=== PATIENT | female | born 1950 | race Caucasian/White ===

== ENCOUNTER 2016-08-26 20:08 | Emergency (ER) | payer OTHER ==
[~2016-08-26] VITALS: Ht 157.5 cm; Wt 67.0 kg
[~2016-08-26 20:08] MED LIST: B COTAB3 PO; CLIN1CAP6 PO; DOXY100T PO; FISH1000 PO; LACT PO; LORTA5 PO; MULT-65 PO; PERC10TA27 PO; SULF-154 PO; VALA500 PO; VITA400C28 PO
[2016-08-26 20:28] VITALS: BP 122/78; PULSE 78; RESP 16; TEMP 97.7; O2SAT 99
[2016-08-26] MEDS ORDERED: LEVO25TA4 PO (20:42)
--- NOTE | 2016-08-26 20:58 | PD ---
HPI . right eye scratching Chief Complaint: Eye Problems/Injury Time Seen by Provider: 20:58 Travel History International Travel<30 days: No Contact w/Intl Traveler<30days: No Traveled to known affect area: No History of Present Illness HPI 65-year-old female with history of dry eyes here with complaints of a right eye scratching sensation. This started all of a sudden today. Patient denies any eye injury or foreign body in her eye. She does not recall any mechanism of injury. She denies any vision change or pain. She reiterates that it feels like there is a scratching in her eye. PFSH Past Medical History Arthritis: Yes Cancer: No Cardiovascular Problems: No Diabetes: No Diminished Hearing: No Hepatitis: No Hiatal Hernia: No Hypertension: No Respiratory: No Thyroid Disease: Yes (Hypo) Tetanus Vaccination: Unknown Influenza Vaccination: No ?: Not Menopausal: Yes Past Surgical History Pacemaker: No Other Surgery: Yes Social History Alcohol Use: No Tobacco Use: No Substance Use: No Allergies-Medications (Allergen,Severity, Reaction): Coded Allergies: No Known Allergies (Verified , 08/26/16) Reported Meds & Prescriptions Reported Meds & Active Scripts Active Reported Levothyroxine (Levothyroxine Sodium) 25 Mcg Tab 25 Mcg PO DAILY Review of Systems General / Constitutional: No: Fever Eyes: Positive: Other (eye scratching), No: Visual changes HENT: No: Headaches Cardiovascular: No: Chest Pain or Discomfort Respiratory: No: Shortness of Breath Gastrointestinal: No: Abdominal Pain Genitourinary: No: Dysuria Musculoskeletal: No: Pain Skin: No Rash Neurologic: No: Weakness Psychiatric: No: Depression Endocrine: No: Polydipsia Hematologic/Lymphatic: No: Easy Bruising Physical Exam Narrative GENERAL: AAO x 3, no acute distress, Well-nourished, well-developed patient. SKIN: Warm and dry. No visible rashes or bruising. HEAD: Normocephalic and atraumatic. EYES: No scleral icterus. No injection or drainage. EOM intact, PERRLA, no redness, no fb seen on exam ENT: No nasal drainage noted. Mucous membranes pink. Airway patent. NECK: Supple, trachea midline. No JVD. CARDIOVASCULAR: Regular rate and rhythm without murmurs, gallops, or rubs. RESPIRATORY: Breath sounds equal bilaterally. No accessory muscle use. No rhonchi or rales. GASTROINTESTINAL: visual inspection normal EXTREMITIES: No cyanosis or edema. BACK: No obvious deformity. NEURO: CN II-12 intact, PSYCH: AAO x 3, normal affect. Data Data Last Documented VS Vital Signs Date Time Temp Pulse Resp B/P Pulse Ox O2 Delivery O2 Flow Rate FiO2 08/26/16 20:28 97.7 78 16 122/78 99 Orders Proparacaine 0.5% Opth Soln (Alcaine 0.5 (08/26/16 21:00) Eye Irrigation (08/26/16 21:00) [facility] Medical Decision Making Medical Screen Exam Complete: Yes Emergency Medical Condition: Yes Medical Record Reviewed: Yes Differential Diagnosis worsening dry eye, less likely FB of eye, less likely corneal abrasion Narrative Course 65-year-old female here with complaints of eye scratching sensation. Initial inspection was done and there is no gross abnormality. eye irrigation performed. Patient initially reported feeling better. Then scratching returned. Eye staining without any gross abn. Explained worsening dry might be the cause. Outpatient f/u with ophthalmology. Return to the emergency department for any worsening eye pain or loss of vision. Advised that she continue using her at home eyedrops as needed. Patient verbalized understanding of instructions, questions were answered, and thanked me for their care. I advised them if their condition worsens, please return to the nearest emergency room for further care. Procedures Procedure Narrative Fluorescein eye staining procedure: proparacaine drops instilled into the right eye Local anesthesia was accomplished. the eye was inspected for any type of obvious foreign body no FB in the right eye fluorescein stain was applied to look for corneal abrasion: No corneal abrasion in the right eye Diagnosis Primary Impression: Eye irritation Additional Impression: Dry eye Referrals: [facility] Patient Instructions: General Instructions Additional Instructions: If your pain persists for several days, go to [facility] as we discussed. If you develop any sudden loss of vision or eye pain, go to the nearest emergency department Med/Other Pt SpecificInfo: No Change to Meds Disposition: 01 DISCHARGE HOME Condition: Stable Bernarda Lopez Aug 26, 2016 20:58
[2016-08-26] MEDS ORDERED: PROPARACAINE HCL 0.5% OPHT SOLN 15 ML BTL RIGHT EYE ONE (21:00)
== END 2016-08-26 22:33 | disposition home or self-care (01) ==
LOC: PHEFT 20:08
DX: H57.8 Other specified disorders of eye and adnexa (principal); H04.123 Dry eye syndrome of bilateral lacrimal glands
CPT/HCPCS: 99284